=== PATIENT | female | born 1965 | race Native Hawaiian/Other Pacific Islander ===

== ENCOUNTER 2018-05-25 14:20 | Emergency (ER) | payer OTHER ==
[~2018-05-25] VITALS: Ht 162.6 cm; Wt 45.4 kg
[2018-05-25 14:30] VITALS: TEMP 98.8
[2018-05-25 15:21] LABS: PLATELET COUNT 192 K/uL (152-353)
[2018-05-25 15:27] LABS: POTASSIUM 4.3 mmol/L (3.6-5.2)
[2018-05-25 16:15] VITALS: BP 149/89
== END 2018-05-25 16:15 | disposition home or self-care (01) ==
LOC: ED 14:20
DX: S70.01XA Contusion of right hip, initial encounter (principal); R41.82 Altered mental status, unspecified; M25.551 Pain in right hip
CPT/HCPCS: 36415; 80053; 85027; 96372; 99283; J1885